=== PATIENT | female | born 2005 | race Caucasian/White ===

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

== ENCOUNTER → 2024-09-14 12:12 | Outpatient (REF) | payer OTHER, SELFPAY | LOC: PAVMRI 12:12 | PROVIDERS: ATTENDING PHYSICIAN Orthopaedic Surgery; FAMILY PHYSICIAN Physician Assistant Medical | DX: Q68.8 Other specified congenital musculoskeletal deformities (principal); M67.471 Ganglion, right ankle and foot | CPT/HCPCS: 73721 ==

== ENCOUNTER → 2025-01-02 10:43 | Outpatient (REF) | payer OTHER, SELFPAY | LOC: HWRAD 10:43 | PROVIDERS: ATTENDING PHYSICIAN Physician Assistant; FAMILY PHYSICIAN Physician Assistant Medical | DX: J34.89 Other specified disorders of nose and nasal sinuses (principal) | CPT/HCPCS: 70486 ==